=== PATIENT | male | born 1990 | race Caucasian/White ===

== ENCOUNTER 2017-07-22 01:16 | Emergency (ER) | payer OTHER, MEDICAID ==
[~2017-07-22] VITALS: Ht 172.7 cm; Wt 104.0 kg
[2017-07-22] MEDS ORDERED: ONDANSETRON HCL 4MG/2ML VIAL IV ONE (02:30)
[2017-07-22] MEDS ORDERED: HALOPERIDOL LACTATE 5MG/ML VIAL IM ONE (02:30)
[2017-07-22 03:00] LABS: BASOPHILS % 1.2 % (0.0-2.0); EOSINOPHILS % 1.4 % (0.0-5.0); HEMATOCRIT. 43.7 % (42.0-52.0); HEMOGLOBIN. 14.8 g/dL (14.0-18.0); LYMPHOCYTES % 34.8 % (20.0-50.0); MEAN CORPUSCULAR HEMOGLOBIN 30.7 pg (28.0-32.0); MEAN CORPUSCULAR VOLUME 90.5 fL (80.0-94.0); MEAN PLATELET VOLUME 9.1 fl (7.4-10.4); MONOCYTES % 8.1 % (2.0-8.0); NEUTROPHILS % 54.5 % (40.0-76.0); PLATELET 235 x1000/uL (130-400); RED BLOOD CELL COUNT 4.83 mill/uL (4.7-6.1)
[2017-07-22 03:01] LABS: CHLORIDE 109 mEq/L (98-107)
[2017-07-22 03:02] LABS: PROTHROMBIN TIME 10.3 sec (9.4-11.6)
[2017-07-22 03:03] LABS: AMMONIA 39 uMol/L (<32)
[2017-07-22 03:09] LABS: CARBON DIOXIDE 21 mEq/L (21-32)
[2017-07-22 03:32] LABS: ETHANOL BLOOD 349 mg/dL
[2017-07-22] MEDS ORDERED: ONDANSETRON HCL 4MG/2ML VIAL IV NR (08:15)
[2017-07-22] MEDS ORDERED: SODIUM CHLORIDE 0.9% 1,000 ML IV ONE (08:15)
[2017-07-22 10:49] VITALS: BP 129/90
== END 2017-07-22 10:50 | disposition home or self-care (01) ==
LOC: ER 01:16 → EDBD 01:16 → ER 10:50
DX: T51.0X1A Toxic effect of ethanol, accidental (unintentional), initial encounter (principal); Y92.89 Other specified places as the place of occurrence of the external cause
CPT/HCPCS: 36415; 70450; 80053; 82140; 85025; 85610; 96361; 96374; 99285; G0482; J2405; Z7610; J7030